=== PATIENT | male | born 1955 | race Caucasian/White ===

== ENCOUNTER 2020-09-15 08:41 | Outpatient (CLI) | payer OTHER, SELFPAY ==
--- NOTE | 2020-09-15 08:49 | XR_ITS ---
WS: [id number] XR shoulder RT min 2V* [id number] REASON FOR EXAM: R SHOULDER PAIN FINDINGS: The joint spaces of the acromioclavicular joint is intact. There is marginal osteophyte formation. There is mild narrowing of the glenohumeral joint. There is some sclerosis and cystic change in the rotator cuff tendon insertion site on humerus. No other significant focal bony abnormality. No soft tissue abnormality. XR/XR shoulder RT min 2V* [id number] IMPRESSION: Degenerative changes in the acromioclavicular and glenohumeral joint. Findings in the humeral head indicative of rotator cuff tendinopathy.
== END 2020-09-15 08:42 | disposition home or self-care (01) ==
LOC: RAD 08:45
PROVIDERS: Visit Provider Nurse Practitioner Family
DX: M25.511 Pain in right shoulder (principal)
CPT/HCPCS: 73030

== ENCOUNTER 2020-10-24 10:18 | Emergency (ER) | payer OTHER, SELFPAY ==
[2020-10-24 10:32] VITALS: BP 154/93; PULSE 93; RESP 16; TEMP 36.7; O2SAT 95; BMI 47.1
--- NOTE | 2020-10-24 10:55 | XR_ITS ---
WS: [id number] Exam: XR hip LT 2-3V wo/w pel* [id number] Date/Time of Exam: 10/24/2020 11:25 AM Reason For Exam: fall pain A total hip prosthesis is in place. No sign of fracture or loosening. Normal soft tissues. XR/XR hip LT 2-3V wo/w pel* [id number] IMPRESSION: 1. Intact total hip replacement. No complications noted.
--- NOTE | 2020-10-24 10:55 | XR_ITS ---
WS: [id number] Exam: XR lumbar spine 2-3V* [id number] Date/Time of Exam: 10/24/2020 11:25 AM Reason For Exam: fall pain No acute fracture or dislocation. Spondylosis noted with prominent anterior bridging osteophytes at s everal levels. The posterior elements are intact. Facet DJD at L4-5 and L5-S1. SI joint DJD. XR/XR lumbar spine 2-3V* [id number] IMPRESSION: 1. No fracture or malalignment. 2. Degenerative changes.
--- NOTE | 2020-10-24 10:59 | W.ED.EXTPRO ---
HPI - Extremity Problem General: Chief complaint: Extremity Injury, Lower Stated complaint: FALL-BACK PAIN Time Seen by Provider: 10/24/20 10:37 History of Present Illness: HPI Narrative: 65-year-old male who presents to the emergency room with complaint of a fall approximately 1 week ago. He fell landed on his left hip he has been to see the chiropractor twice and had some adjustments to his hip and back. He complains of pain radiating out of the lumbar spine area left of center down into the SI joint and around to the hip it does not extend into the leg he has been ambulating on it since the fall. He has a history of a previous left hip arthroplasty. Onset (ago): week(s) Pain Consistency: constant Location: other (Left lower back radiating into the buttock and lateral hip) Radiation: distal Relieving factors: nothing Exacerbating factors: weight bearing, walking, exertion and palpation Associated symptoms: Reports arthralgias; Deny chest pain, fever(s) or rash Review of Systems Const: Denies: fever(s), chills, body aches, change in appetite, fatigue or malaise ENMT: Denies: throat pain, ear or mastoid pain, nasal discharge or nasal congestion Card: Denies: chest pain, edema, dyspnea on exertion or orthopnea Resp: Denies: dyspnea, productive cough or non-productive cough GI: Denies: abdominal pain, nausea, vomiting, hematemesis, coffee ground emesis, diarrhea, constipation, bloating, hematochezia or melena : Denies: flank pain, dysuria, urinary frequency or urinary urgency Skin/Breast: Denies: rash or pruritus Physical Exam Const: COMMON NORMALS: no acute distress GENERAL APPEARANCE: cooperative and comfortable ORIENTATION/CONSCIOUSNESS: Yes awake, Yes oriented to person, Yes oriented to place and Yes oriented to time HENMT: COMMON NORMALS: normocephalic, atraumatic and hearing grossly normal bilaterally HEAD & SCALP: normocephalic and atraumatic Neck/C-Spine: COMMON NORMALS: no JVD Resp: COMMON NORMALS: normal respiratory effort, No retractions, No use of accessory muscles and clear to auscultation bilaterally AUSCULTATION: clear to auscultation bilaterally Cardio: COMMON NORMALS: no JVD, regular rate, regular rhythm and No murmurs present (Cardio) RATE: regular rate RHYTHM: regular rhythm GI: COMMON NORMALS: Soft to palpation and No hepatosplenomegaly present AUSCULTATION: Yes normoactive bowel sounds PALPATION: Yes Soft to palpation, No Tenderness to palpation present (GI), No Guarding due to palpation present (GI) and Yes No hepatosplenomegaly present Extremity: COMMON NORMALS: normal to inspection, capillary refill normal, no clubbing, cyanosis or edema, no calf tenderness and no pedal edema Neuro: SENSORIUM/ORIENTATION: Yes oriented to person, Yes oriented to place and Yes oriented to time Skin: COMMON NORMALS: no rashes or lesions noted GENERAL SKIN EXAM: no rashes or lesions noted Course Vital Signs: Vital signs: Vital Signs Temperature 98.0 F 10/24/20 10:32 Pulse Rate 83 10/24/20 12:53 Respiratory Rate 16 10/24/20 12:53 Blood Pressure 181/81 10/24/20 12:53 Pulse Oximetry 94 10/24/20 12:53 MDM - Extremity (Nontraumatic) MDM Narrative: Medical decision making narrative: Viewed findings of exam and imaging today. Will discharge the patient home have him follow-up with his primary care doctor pain medications given. Patient reassured that the films do not show any disruption of the prosthesis. He has significant arthritic changes in his lumbar spine but nothing acute. Follow-up with his primary care doctor if this persists he may need further advanced imaging Discharge Plan Discharge Patient Disposition: Home Clinical Impression: Back pain, Fall Condition: Stable Prescriptions: New hydrocodone-acetaminophen 5-325 mg tablet 1 tab PO Q6H PRN (Reason: pain) Qty: 25 RF: 0 tizanidine 2 mg capsule 2 mg PO Q6H PRN (Reason: muscle spasticity) Qty: 20 RF: 0 Discharge Orders: Discharge ED (Routine); Ordered 10/24/20 Ordered By: Fredrick Snow Discharge Diet: Usual diet Discharge Activity: Increase activity as tolerated Patient Instructions: Opioid Safety Activity Restrictions/Additional Instructions: Follow-up with your primary care provider if not improving Coding Level of Care Code ED Mender Hand for Yasmeen Castillo
[2020-10-24 12:53] VITALS: BP 181/81; PULSE 83; RESP 16; O2SAT 94
== END 2020-10-24 12:53 | disposition home or self-care (01) ==
PROVIDERS: Emergency Provider Family Medicine
DX: M54.9 Dorsalgia, unspecified (principal)
CPT/HCPCS: 72100; 73502; 96372; 99283; J2930

== ENCOUNTER 2021-09-03 15:16 | Outpatient (CLI) | payer OTHER, SELFPAY ==
[2021-09-03 15:37] LABS: Basophils # 0.1 10^3/uL (0.0-0.1); Basophils % 0.7 %; Eosinophils # 0.4 10^3/uL (0.0-0.8); Eosinophils % 2.8 %; Hematocrit 43.9 % (42.0-52.0); Hemoglobin 13.5 g/dL (11.7-16.6); Lymphocytes # 2.7 10^3/uL (0.8-4.8); Lymphocytes % 18.3 %; Mean Corpuscular HGB Conc 30.8 g/dL (30.0-36.0); Mean Corpuscular Hemoglobin 28.5 pg (28.0-34.0); Mean Corpuscular Volume 92.6 fl (80-94); Mean Platelet Volume 9.8 fL (7.4-10.4); Monocytes # 0.8 10^3/uL (0.2-0.9); Monocytes % 5.5 %; Neutrophils # 10.42 10^3/uL (1.8-7.7); Neutrophils % 70.4 %; Nucleated Red Blood Cells % 0 %; Platelet Count 377 10^3/cmm (130-400); Red Blood Count 4.74 10^6/uL (4.1-5.3); Red Cell Distribution Width 14.7 % (12.1-15.1); White Blood Count 14.8 10^3/uL (4.0-10.0)
== END 2021-09-03 15:17 | disposition home or self-care (01) ==
PROVIDERS: Visit Provider Orthopaedic Surgery
DX: Z79.01 Long term (current) use of anticoagulants (principal)
CPT/HCPCS: 85025

== ENCOUNTER 2022-04-09 14:47 | Outpatient (CLI) | payer OTHER, SELFPAY | END 2022-04-09 14:48 | disposition home or self-care (01) | LOC: LAB 14:50 | PROVIDERS: Visit Provider Urology | DX: R79.89 Other specified abnormal findings of blood chemistry (principal) | CPT/HCPCS: 36415; 81003 ==

== ENCOUNTER 2022-11-12 08:12 | Outpatient (CLI) | payer MEDICARE, SELFPAY ==
--- NOTE | 2022-11-12 08:31 | US_ITS ---
WS: [id number] RIGHT UPPER QUADRANT ULTRASOUND HISTORY: RUQ ABDOMINAL PAIN COMPARISON: 09/01/2014 Liver: 20.8 cm in length. Enlarged very heterogeneous dense liver. The entire liver cannot be evaluat ed due to the attenuation. No mass or bile duct dilatation evident. Portal Vein: Normal hepatopetal flow with monophasic waveform. Gallbladder: Status post cholecystectomy. CBD: 0.7 cm Pancreas: Obscured by bowel gas. Right kidney: 12.4 cm in length. Normal size and echogenicity. No hydronephrosis or mass. Aorta and IVC: Limited. No ascites. US/US abdomen limited [id number] IMPRESSION: 1. Quality of this examination is compromised by body habitus. 2. Marked hepatomegaly with hepatic steatosis. The entire liver cannot be well evaluated due to the attenuation. 3. Prior cholecystectomy. 4. Limited visualization of pancreas and aorta.
== END 2022-11-12 08:13 | disposition home or self-care (01) ==
PROVIDERS: PCP Nurse Practitioner Family; Visit Provider Nurse Practitioner Family
DX: R10.11 Right upper quadrant pain (principal)
CPT/HCPCS: 76705

== ENCOUNTER → 2022-11-15 08:14 | Outpatient (BNVA) | payer MEDICARE, SELFPAY | PROVIDERS: PCP Nurse Practitioner Family; Visit Provider Otolaryngology | DX: H91.92 Unspecified hearing loss, left ear (principal); H93.12 Tinnitus, left ear | CPT/HCPCS: 99203 ==

== ENCOUNTER 2022-12-08 16:03 | Emergency (ER) | payer MEDICARE, SELFPAY ==
[2022-12-08] VITALS (14 sets, daily range): BP systolic 120–162; BP diastolic 74–88; PULSE 68–83; RESP 18–22; TEMP 36.6; O2SAT 92–98; BMI 44.7
--- NOTE | 2022-12-08 16:08 | ECG_ITS ---
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 Measurements Intervals Severance Rate: 74 P: 62 NM: 138 QRS: -30 QRSD: 160 T: 21 QT: 378 QTc: 421 Interpretive Statements SINUS RHYTHM BORDERLINE LEFT AXIS DEVIATION [QRS AXIS < -20] RIGHT BUNDLE BRANCH BLOCK [120+ ms QRS DURATION, UPRIGHT V1, 40+ ms S IN I/aVL/V4/V5/V6] No previous ECG available for comparison Electronically Signed On 12-09-2022 11:08:41 CDT by Soila Oliver M.D. [id number]
--- NOTE | 2022-12-08 16:24 | XRR_ITS ---
PROCEDURE INFORMATION: Exam: XR Chest Exam date and time: 12/08/2022 4:39 PM Age: 67 years old Clinical indication: Pain; Chest pressure; Additional info: Cp TECHNIQUE: Imaging protocol: Radiologic exam of the chest. Views: 1 view. COMPARISON: CR XR shoulder RT min 2V* [id number] 09/15/2020 8:58 AM FINDINGS: Lungs: Visualized portions of the lungs are clear. There is no pulmonary venous congestion. Pleural spaces: Unremarkable. No pleural effusion. No pneumothorax. Heart/Mediastinum: Heart is upper limits of normal in size. Bones/joints: There are degenerative changes in the thoracic spine. There is some intercostal calcification in the lateral 9th interspace which could be due to prior remote injury. XR/XR chest 1V portable [id number] IMPRESSION: No acute infiltrate.
--- NOTE | 2022-12-08 16:26 | W.ED.CHESTPA ---
Documented by User: Paul Hernandez DO 12/08/22 17:58 HPI - Chest Pain General: Chief Complaint: Chest Pain Stated Complaint: chest tight, chest pains Time Seen by Provider: 12/08/22 16:10 Source: patient Mode of arrival: ambulatory Limitations: no limitations History of Present Illness: This gentleman made his way to the emergency department today because he became concerned about symptoms he has been having off and on for several weeks perhaps as long as a month. He does relate that they seem to be worsening over the past couple of weeks. They are rather vague and there characterization and that they predominantly are in the right flank area right chest area into the right upper abdomen. They do not have a particular pattern. He states that they are achy or grabbing at times sometimes they are positional but he cannot bring them on in a predictable fashion with activity. He denies that they are ripping or tearing he has not had any recent cough or illness. He states a couple months ago he was working on an engine on one of his cars and he developed some symptoms at that time and thought it was because of the position and possibly bending over working on the engine. He has had some nausea with the symptoms he thinks they are associated with the symptoms he does have a history of gastroesophageal reflux. Denies any change in his stooling urination etc. He states they are not brought on by eating. He has had a prior cholecystectomy and had a recent right upper quadrant ultrasound which showed fatty liver only. He has no history of kidney stones not noted any blood in his urine. He is a nontobacco user nonalcohol user. No history of reactive airway disease or asthma or recent illness. Does have a left hip arthroplasty which causes him discomfort when he tries to ambulate any persistent or long distances so he cannot tell me if he is short of breath with any greater than normal activity. Associated symptoms: Reports nausea; Deny abdominal pain, dyspnea, fever(s), palpitations or syncope Review of Systems Const: Denies: fever(s) or chills Eyes: Denies: change in vision ENMT: Denies: throat pain, odynophagia, nasal discharge or nasal congestion Card: Denies: chest pain, palpitations, irregular heart rhythm, edema, syncope or pre-syncope Resp: Denies: dyspnea, productive cough, non-productive cough, wheezing or stridor GI: Reports: nausea; Denies: abdominal pain, hematemesis, diarrhea or melena : Reports: flank pain; Denies: difficulty urinating, dysuria, urinary frequency or hematuria Musc: Reports: back pain; Denies: neck pain, extremity pain or extremity swelling Skin/Breast: Denies: rash Neuro: Denies: headache(s), numbness in extremities or weakness in extremities PFSH ED PFSH: Medical History Gout Hypertension Surgical History History of cholecystectomy History of left hip replacement History of shoulder surgery Social History Smoking and tobacco status: never smoked Physical Exam Const: COMMON NORMALS: patient oriented x3 GENERAL APPEARANCE: cooperative, comfortable and anxious NUTRITIONAL APPEARANCE: obese ORIENTATION/CONSCIOUSNESS: Yes awake HENMT: COMMON NORMALS: normocephalic, Normal nasal mucous membranes and turbinates present, moist oral mucous membranes and oropharynx normal HEAD & SCALP: normocephalic FACE & SINUS: normal facial exam NOSE: Normal nasal mucous membranes and turbinates present Eye: COMMON NORMALS: Equal, round and reactive pupils present, EOMs intact bilaterally and conjunctivae normal CONJUNCTIVA: Yes conjunctivae normal PUPIL: Yes Equal, round and reactive pupils present Neck/C-Spine: COMMON NORMALS: full ROM, no lymphadenopathy, supple and no JVD Chest: COMMONS NORMALS: normal inspection of the chest and normal palpation of entire chest wall Resp: COMMON NORMALS: normal respiratory effort, No retractions, No use of accessory muscles and clear to auscultation bilaterally AUSCULTATION: clear to auscultation bilaterally Cardio: COMMON NORMALS: no JVD, regular rate, regular rhythm, No murmurs present (Cardio) and Peripheral pulses 2+ throughout RATE: regular rate RHYTHM: regular rhythm PERIPHERAL PULSES: Peripheral pulses 2+ throughout GI: COMMON NORMALS: Soft to palpation, No hepatosplenomegaly present and no masses INSPECTION: Yes central obesity PALPATION: Yes Soft to palpation and Yes No hepatosplenomegaly present GI image (male): 1. Area of tenderness without guarding or rebound skin rashes etc. : COMMON NORMALS: Yes no CVA tenderness BLADDER/KIDNEY EXAM: Yes no CVA tenderness Back/Pelvis: COMMON NORMALS: no CVA tenderness, thoracic and lumbar spine normal to inspection, no thoracic nor lumbar tenderness, thoraco-lumbar ROM normal and straight leg raise negative bilaterally Extremity: COMMON NORMALS: normal to inspection, full ROM, capillary refill normal, no calf tenderness and no pedal edema Neuro: COMMON NORMALS: patient oriented x3, moves all extremities and no sensory deficits noted CRANIAL NERVES: Yes CN normal except as noted Psych: COMMON NORMALS: mental status grossly normal Skin: COMMON NORMALS: no rashes or lesions noted, no wounds and turgor normal GENERAL SKIN EXAM: no rashes or lesions noted and turgor normal Course Reevaluation(s): Reevaluation #1: Case was discussed with overnight ED physician Dr. Sandra Time: 17:55 Vital Signs: Vital signs: Vital Signs Temperature 97.9 F 12/08/22 16:16 Pulse Rate 78 12/08/22 17:15 Respiratory Rate 18 12/08/22 16:30 Blood Pressure 161/83 12/08/22 17:15 Pulse Oximetry 94 12/08/22 17:15 Oxygen Delivery Me thod Room Air 12/08/22 16:16 MDM - Chest Pain Medical Decision Making Patient with right flank pain presented to the emergency department with several weeks of similar symptoms. Work-up ensued to ensure no evidence of pyelonephritis, renal stone, occult ACS etc. Lab Data 12/08/22 16:18 12/08/22 16:18 Radiology Impressions Chest X-Ray 12/08/22 16:24 IMPRESSION: No acute infiltrate. Abdomen/Pelvis CT 12/08/22 17:16 IMPRESSION: 1. Fatty liver 2. No urinary tract calculi are identified. Laboratory Results WBC 13.3 10^3/uL (4.0-10.0) H 12/08/22 16:18 RBC 4.76 10^6/uL (4.1-5.3) 12/08/22 16:18 Hgb 13.9 g/dL (11.7-16.6) 12/08/22 16:18 Hct 43.2 % (42.0-52.0) 12/08/22 16:18 MCV 90.8 fl (80-94) 12/08/22 16:18 MCH 29.2 pg (28.0-34.0) 12/08/22 16:18 MCHC 32.2 g/dL (30.0-36.0) 12/08/22 16:18 RDW 15.0 % (12.1-15.1) 12/08/22 16:18 Plt Count 222 10^3/cmm (130-400) 12/08/22 16:18 MPV 10.0 fL (7.4-10.4) 12/08/22 16:18 Neut % (Auto) 67.4 % 12/08/22 16:18 Lymph % (Auto) 21.9 % 12/08/22 16:18 [place] % (Auto) 7.3 % 12/08/22 16:18 Eos % (Auto) 1.7 % 12/08/22 16:18 Baso % (Auto) 0.5 % 12/08/22 16:18 Neut # (Auto) 8.96 10^3/uL (1.8-7.7) H 12/08/22 16:18 Lymph # (Auto) 2.9 10^3/uL (0.8-4.8) 12/08/22 16:18 [place] # (Auto) 1.0 10^3/uL (0.2-0.9) H 12/08/22 16:18 Eos # (Auto) 0.2 10^3/uL (0.0-0.8) 12/08/22 16:18 Baso # (Auto) 0.1 10^3/uL (0.0-0.1) 12/08/22 16:18 Nucleated RBC % (auto) 0 % 12/08/22 16:18 Nucleated RBCs # 0.0 /100WBC 12/08/22 16:18 Sodium 137 mmol/L (136-145) 12/08/22 16:18 Potassium 3.4 mmol/L (3.5-5.1) L 12/08/22 16:18 Chloride 102 mmol/L (98-107) 12/08/22 16:18 Carbon Dioxide 25 mmol/L (22-29) 12/08/22 16:18 Anion Gap 13.4 (5-19) 12/08/22 16:18 BUN 20 mg/dL (8-23) 12/08/22 16:18 Creatinine 0.8 mg/dL (0.7-1.2) 12/08/22 16:18 GFR Calculation 96.7 mL/min (90-130) 12/08/22 16:18 Glucose 98 mg/dL (65-115) 12/08/22 16:18 Calculated Osmolality 287 mOsm/kg (285-295) 12/08/22 16:18 Calcium 8.7 mg/dL (8.5-10.5) 12/08/22 16:18 Total Bilirubin 0.4 mg/dL (0.15-1.2) 12/08/22 16:18 AST 18 U/L (0-40) 12/08/22 16:18 ALT 23 U/L (0-41) 12/08/22 16:18 Alkaline Phosphatase 85 U/L (40-130) 12/08/22 16:18 Troponin T Baseline 9 ng/L (0-15) 12/08/22 16:18 Troponin T 120 Minute 8.77 ng/L (0-15) 12/08/22 18:23 Total Protein 6.3 g/dL (6.6-8.7) L 12/08/22 16:18 Albumin 4.0 g/dL (3.5-5.2) 12/08/22 16:18 Globulin 2.3 g/dL (1.3-4.6) 12/08/22 16:18 Lipase 16 U/L (13-60) 12/08/22 16:18 EKG Data EKG 1: I personally reviewed and interpreted this EKG as follows: Interpretation: Resting EKG reveals a ventricular rate of 74 bpm. Normal CO interval and normal QRS duration normal Q TC. Has a right bundle branch block pattern but no acute ST-T wave changes.We have no prior tracings available in this system for comparison Discharge Plan Discharge Patient Disposition: Home Clinical Impression: Chest pain Condition: Stable Prescriptions: No Action fluticasone propionate [Flonase Allergy Relief] 50 mcg/actuation spray,suspension 2 spray intranasal DAILY Rx Instructions: administer into each nostril triamterene-hydrochlorothiazid 37.5-25 mg capsule 1 cap PO DAILY pantoprazole 40 mg tablet,delayed release (DR/EC) 40 mg PO BID celecoxib [Celebrex] 200 mg capsule 200 mg PO DAILY meclizine 25 mg tablet 25 mg PO DAILY PRN allopurinol 300 mg tablet 300 mg PO DAILY losartan 50 mg tablet 50 mg PO DAILY tramadol 50 mg tablet 50 mg PO DAILY acetaminophen [Tylenol Arthritis Pain] 650 mg tablet extended release 650 mg PO Q12H tizanidine 2 mg capsule 2 mg PO Q6H PRN (Reason: muscle spasticity) Qty: 20 0RF Rx Instructions: do not exceed 3 doses per 24 hrs Discharge Orders: Discharge ED (Routine); Ordered 12/08/22 Ordered By: Jing Sandra Referrals: Soila Oliver MD [Physician] - 1-3 days Winters,DODIE Morrissey [Primary Care Provider] - Discharge Diet: Advance as tolerated Discharge Activity: Resume usual activity Patient Instructions: Chest Pain (ED) Coding Level of Care Code ED Welding Rod Coater for Chg Fwd Documented by User: Jing Sandra MD 12/08/22 19:12 HPI - Chest Pain General: Chief Complaint: Chest Pain Stated Complaint: chest tight, chest pains Time Seen by Provider: 12/08/22 16:10 [facility] ED PFSH: Medical History Gout Hypertension Surgical History History of cholecystectomy History of left hip replacement History of shoulder surgery Social History Smoking and tobacco status: never smoked Physical Exam GI: GI image (male): 1. Area of tenderness without guarding or rebound skin rashes etc. Course Vital Signs: Vital signs: Vital Signs Temperature 97.9 F 12/08/22 16:16 Pulse Rate 78 12/08/22 17:15 Respiratory Rate 18 12/08/22 16:30 Blood Pressure 161/83 12/08/22 17:15 Pulse Oximetry 94 12/08/22 17:15 Oxygen Delivery Me thod Room Air 12/08/22 16:16 MDM - Chest Pain Medical Decision Making Patient with right flank pain presented to the emergency department with several weeks of similar symptoms. Work-up ensued to ensure no evidence of pyelonephritis, renal stone, occult ACS etc. Patient's troponins here are normal no signs of acute coronary syndrome. Patient is stable for discharge at this time we will get him cardiology follow-up he is return if worsening. Lab Data 12/08/22 16:18 12/08/22 16:18 Radiology Impressions Chest X-Ray 12/08/22 16:24 IMPRESSION: No acute infiltrate. Abdomen/Pelvis CT 12/08/22 17:16 IMPRESSION: 1. Fatty liver 2. No urinary tract calculi are identified. Laboratory Results WBC 13.3 10^3/uL (4.0-10.0) H 12/08/22 16:18 RBC 4.76 10^6/uL (4.1-5.3) 12/08/22 16:18 Hgb 13.9 g/dL (11.7-16.6) 12/08/22 16:18 Hct 43.2 % (42.0-52.0) 12/08/22 16:18 MCV 90.8 fl (80-94) 12/08/22 16:18 MCH 29.2 pg (28.0-34.0) 12/08/22 16:18 MCHC 32.2 g/dL (30.0-36.0) 12/08/22 16:18 RDW 15.0 % (12.1-15.1) 12/08/22 16:18 Plt Count 222 10^3/cmm (130-400) 12/08/22 16:18 MPV 10.0 fL (7.4-10.4) 12/08/22 16:18 Neut % (Auto) 67.4 % 12/08/22 16:18 Lymph % (Auto) 21.9 % 12/08/22 16:18 [place] % (Auto) 7.3 % 12/08/22 16:18 Eos % (Auto) 1.7 % 12/08/22 16:18 Baso % (Auto) 0.5 % 12/08/22 16:18 Neut # (Auto) 8.96 10^3/uL (1.8-7.7) H 12/08/22 16:18 Lymph # (Auto) 2.9 10^3/uL (0.8-4.8) 12/08/22 16:18 [place] # (Auto) 1.0 10^3/uL (0.2-0.9) H 12/08/22 16:18 Eos # (Auto) 0.2 10^3/uL (0.0-0.8) 12/08/22 16:18 Baso # (Auto) 0.1 10^3/uL (0.0-0.1) 12/08/22 16:18 Nucleated RBC % (auto) 0 % 12/08/22 16:18 Nucleated RBCs # 0.0 /100WBC 12/08/22 16:18 Sodium 137 mmol/L (136-145) 12/08/22 16:18 Potassium 3.4 mmol/L (3.5-5.1) L 12/08/22 16:18 Chloride 102 mmol/L (98-107) 12/08/22 16:18 Carbon Dioxide 25 mmol/L (22-29) 12/08/22 16:18 Anion Gap 13.4 (5-19) 12/08/22 16:18 BUN 20 mg/dL (8-23) 12/08/22 16:18 Creatinine 0.8 mg/dL (0.7-1.2) 12/08/22 16:18 GFR Calculation 96.7 mL/min (90-130) 12/08/22 16:18 Glucose 98 mg/dL (65-115) 12/08/22 16:18 Calculated Osmolality 287 mOsm/kg (285-295) 12/08/22 16:18 Calcium 8.7 mg/dL (8.5-10.5) 12/08/22 16:18 Total Bilirubin 0.4 mg/dL (0.15-1.2) 12/08/22 16:18 AST 18 U/L (0-40) 12/08/22 16:18 ALT 23 U/L (0-41) 12/08/22 16:18 Alkaline Phosphatase 85 U/L (40-130) 12/08/22 16:18 Troponin T Baseline 9 ng/L (0-15) 12/08/22 16:18 Troponin T 120 Minute 8.77 ng/L (0-15) 12/08/22 18:23 Total Protein 6.3 g/dL (6.6-8.7) L 12/08/22 16:18 Albumin 4.0 g/dL (3.5-5.2) 12/08/22 16:18 Globulin 2.3 g/dL (1.3-4.6) 12/08/22 16:18 Lipase 16 U/L (13-60) 12/08/22 16:18 Discharge Plan Discharge Patient Disposition: Home Clinical Impression: Chest pain Condition: Stable Prescriptions: No Action fluticasone propionate [Flonase Allergy Relief] 50 mcg/actuation spray,suspension 2 spray intranasal DAILY Rx Instructions: administer into each nostril triamterene-hydrochlorothiazid 37.5-25 mg capsule 1 cap PO DAILY pantoprazole 40 mg tablet,delayed release (DR/EC) 40 mg PO BID celecoxib [Celebrex] 200 mg capsule 200 mg PO DAILY meclizine 25 mg tablet 25 mg PO DAILY PRN allopurinol 300 mg tablet 300 mg PO DAILY losartan 50 mg tablet 50 mg PO DAILY tramadol 50 mg tablet 50 mg PO DAILY acetaminophen [Tylenol Arthritis Pain] 650 mg tablet extended release 650 mg PO Q12H tizanidine 2 mg capsule 2 mg PO Q6H PRN (Reason: muscle spasticity) Qty: 20 0RF Rx Instructions: do not exceed 3 doses per 24 hrs Discharge Orders: Discharge ED (Routine); Ordered 12/08/22 Ordered By: Jing Sandra Referrals: Soila Oliver MD [Physician] - 1-3 days Winters,DODIE Morrissey [Primary Care Provider] - Discharge Diet: Advance as tolerated Discharge Activity: Resume usual activity Patient Instructions: Chest Pain (ED) Coding Level of Care Code ED Welding Rod Coater for Yasmeen Castillo
--- NOTE | 2022-12-08 16:27 | PC.NURSE ---
PT PLACED ON CONTINUOUS SPO2, NIBP, AND CM.
[2022-12-08 16:39] LABS: Basophils # 0.1 10^3/uL (0.0-0.1); Basophils % 0.5 %; Eosinophils # 0.2 10^3/uL (0.0-0.8); Eosinophils % 1.7 %; Hematocrit 43.2 % (42.0-52.0); Hemoglobin 13.9 g/dL (11.7-16.6); Lymphocytes # 2.9 10^3/uL (0.8-4.8); Lymphocytes % 21.9 %; Mean Corpuscular HGB Conc 32.2 g/dL (30.0-36.0); Mean Corpuscular Hemoglobin 29.2 pg (28.0-34.0); Mean Corpuscular Volume 90.8 fl (80-94); Monocytes % 7.3 %; Neutrophils # 8.96 10^3/uL (1.8-7.7); Neutrophils % 67.4 %; Nucleated Red Blood Cells % 0 %; Platelet Count 222 10^3/cmm (130-400); Red Blood Count 4.76 10^6/uL (4.1-5.3); White Blood Count 13.3 10^3/uL (4.0-10.0)
[2022-12-08 16:56] LABS: Alanine Aminotransferase 23 U/L (0-41); Alkaline Phosphatase 85 U/L (40-130); Anion Gap 13.4 (5-19); Aspartate Amino Transferase 18 U/L (0-40); Blood Urea Nitrogen 20 mg/dL (8-23); Calcium 8.7 mg/dL (8.5-10.5); Carbon Dioxide 25 mmol/L (22-29); Chloride 102 mmol/L (98-107); Globulin 2.3 g/dL (1.3-4.6); Glomerular Filtration Rate 96.7 mL/min (90-130); Glucose 98 mg/dL (65-115); Lipase 16 U/L (13-60); Osmolality Calculated 287 mOsm/kg (285-295); Potassium 3.4 mmol/L (3.5-5.1); Sodium 137 mmol/L (136-145); Total Bilirubin 0.4 mg/dL (0.15-1.2); Total Protein 6.3 g/dL (6.6-8.7)
[2022-12-08 16:58] LABS: Troponin(5th) Baseline 9 ng/L (0-15)
--- NOTE | 2022-12-08 17:16 | CTR_ITS ---
PROCEDURE INFORMATION: Exam: CT Abdomen And Pelvis Without Contrast Exam date and time: 12/08/2022 5:59 PM Age: 67 years old Clinical indication: Abdominal pain; Flank; Right; Prior surgery; Surgery date: 6+ months; Surgery type: Gb; Additional info: Right flank pain TECHNIQUE: Imaging protocol: Computed tomography of the abdomen and pelvis without contrast. Radiation optimization: All CT scans at this facility use at least one of these dose optimization techniques: automated exposure control; mA and/or kV adjustment per patient size (includes targeted exams where dose is matched to clinical indication); or iterative reconstruction. REPORTING DATA: Count of CT and Cardiac NM exams in prior 12 months: This patient has received 0 known CTs and 0 known cardiac nuclear medicine studies in the 12 months prior to the current study. COMPARISON: CR XR hip LT 2-3V wo/w pel* [id number] 10/24/2020 11:30 AM RADIATION DOSE METRICS: Total DLP (mGy-cm): 1262.83 FINDINGS: Limitations: The absence of intravenous contrast lessens the sensitivity of this study for solid organ abnormalities. Tubes, catheters and devices: There is left hip replacement with prosthetic components in anatomic alignment. Liver: There is a diffuse decrease in hepatic parenchymal density, consistent with mild fatty infiltration. There is no focal abnormality within the liver. Gallbladder and bile ducts: There has been a cholecystectomy. Pancreas: The pancreas is normal. Spleen: The spleen is normal. Adrenal glands: The adrenal glands are normal. Kidneys and ureters: The kidneys are normal. There is no evidence of hydronephrosis. There is no evidence of renal or ureteral calcifications. Stomach and bowel: There is no evidence of colitis/diverticulitis. There is no evidence of intestinal obstruction. Appendix: A normal appendix is identified. Intraperitoneal space: There is no evidence of free intraperitoneal fluid. Vasculature: Unremarkable. No abdominal aortic aneurysm. Lymph nodes: Unremarkable. No enlarged lymph nodes. Urinary bladder: Unremarkable as visualized. Reproductive: The prostate demonstrates mild nonspecific enlargement. The seminal vesicles are normal. Bones/joints: The lumbar spine demonstrates moderate degenerative changes at multiple levels. There is multilevel lumbar stenosis. Soft tissues: Unremarkable. CT/CT abdomen pelvis wo con [id number] IMPRESSION: 1. Fatty liver 2. No urinary tract calculi are identified.
--- NOTE | 2022-12-08 18:24 | ECG_ITS ---
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 Measurements Intervals Apex Rate: 73 P: 68 MT: 147 QRS: -25 QRSD: 165 T: 33 QT: 416 QTc: 459 Interpretive Statements SINUS RHYTHM BORDERLINE LEFT AXIS DEVIATION [QRS AXIS < -20] RIGHT BUNDLE BRANCH BLOCK [120+ ms QRS DURATION, UPRIGHT V1, 40+ ms S IN I/aVL/V4/V5/V6] Compared to ECG 12/08/2022 16:08:17 No significant changes Electronically Signed On 12-09-2022 11:10:46 CDT by Soila Oliver M.D. [id number]
[2022-12-08 19:01] LABS: Troponin 5 2HR 8.77 ng/L (0-15)
[2022-12-08 19:52] LABS: Troponin 5 2HR Delta -0.23 ABS# (0-10)
--- NOTE | 2022-12-09 10:19 | DCPLANNER ---
Addendum entered by Michelle Coley 01/23/23 07:18: Patient had a follow up appointment scheduled with heart care - patient did attend appointment Addendum entered by Michelle Coley 12/10/22 09:37: Patient has a follow up appointment scheduled for Saturday, January 14, 2023 at 9:[address] Oliver at [facility]. Original Note: it service manager had message to schedule a follow up appointment for patient with cardiology. it service manager sent patients to the front office staff at [facility]. Patients information will be printed and reviewed. Clinic will call patient with appointment information.
== END 2022-12-08 19:33 | disposition home or self-care (01) ==
PROVIDERS: Emergency Medicine; Emergency Provider Emergency Medicine; PCP Nurse Practitioner Family
DX: R07.89 Other chest pain (principal); R10.11 Right upper quadrant pain; I45.10 Unspecified right bundle-branch block
CPT/HCPCS: 36415; 71045; 74176; 80053; 83690; 84484; 85025; 93005; 99285

== ENCOUNTER → 2023-01-01 13:02 | Outpatient (BNVA) | payer MEDICARE, SELFPAY | PROVIDERS: PCP Nurse Practitioner Family; Visit Provider Internal Medicine | DX: R07.89 Other chest pain (principal); I10 Essential (primary) hypertension | CPT/HCPCS: 99204 ==

== ENCOUNTER 2023-01-15 08:21 | Outpatient (CLI) | payer MEDICARE, SELFPAY ==
--- NOTE | 2023-01-15 08:45 | USCV_ITS ---
Abhishek Bunch Age: 67 Gender: M : 1955 Exam Date: 01/15/2023 08:59 Ordering Phys: Hung Washington M.D ([email or web address]) Technologist: Exam Location: [facility] [place] Indication: chest pain BP: 135 / 80 HR: 82 Rhythm: Sinus Technical Quality: Adequate MEASUREMENTS (Male / Female) Normal Values 2D ECHO LV Diastolic Diameter PLAX 5.2 cm 4.2 - 5.9 / 3.9 - 5.3 cm LV Systolic Diameter PLAX 3.0 cm IVS Diastolic Thickness 1.7 cm 0.6 - 1.0 / 0.6 - 0.9 cm IVS Systolic Thickness 2.1 cm LVPW Diastolic Thickness 1.7 cm 0.6 - 1.0 / 0.6 - 0.9 cm LVPW Systolic Thickness 1.6 cm LVOT Diameter 2.0 cm LV Ejection Fraction 2D Teich 73.6 % LV Ejection Fraction MOD 2C 61.3 % LV Ejection Fraction 2C AL 62.5 % LA Diameter 3.9 cm Aorta at Sinotubular Diameter 3.3 cm IVC Diameter 1.9 cm M-MODE Aortic Annulus Diameter 3.1 cm LA Ao Ratio MM 1.4 MV E Point Septal Separation 1.1 cm DOPPLER AV Peak Velocity 151.0 cm/s LVOT Peak Velocity 110.0 cm/s AV Area Cont Eq vti 2.9 cm squared AV Area Cont Eq pk 2.4 cm squared MV Area PHT 5.0 cm squared Mitral E to A Ratio 0.8 MV E' Velocity 50.0 cm/s Mitral E to MV E' Ratio 11.7 Mitral E to LV E' Lateral Ratio 11.8 Mitral E to LV E' Septal Ratio 11.7 TR Peak Velocity 147.3 cm/s TR Peak Gradient 8.7 mmHg RV Acceleration Time 0.2 s FINDINGS Left Ventricle Left ventricle is normal size. LV systolic function is normal with EF of 55 to 60%. No regional wall motion abnormalities are seen. Grade 1 diastolic dysfunction Right Ventricle Normal in size and function Right Atrium Normal in size Left Atrium Normal in size Mitral Valve Structurally normal mitral valve. No significant regurgitation. Aortic Valve Structurally normal aortic valve. No significant stenosis or regurgitation. Tricuspid Valve Mild tricuspid regurgitation. Insufficient TR jet to calculate RVSP. Pulmonic Valve Not well-visualized Pericardium Normal Aorta Normal in size IVC Appears to be normal CONCLUSIONS LV systolic function is normal with EF of 55 to 60% Grade 1 diastolic dysfunction Mild tricuspid regurgitation Compared to prior echocardiogram from 2014, no significant changes are seen Hung Washington MD (Electronically Signed) Final Date: 01 February 2023 11:01 S
== END 2023-01-15 08:22 | disposition home or self-care (01) ==
PROVIDERS: PCP Nurse Practitioner Family; Visit Provider Internal Medicine
DX: R06.02 Shortness of breath (principal); R07.9 Chest pain, unspecified
CPT/HCPCS: 93306

== ENCOUNTER 2023-01-28 08:00 | Outpatient (CLI) | payer MEDICARE, SELFPAY ==
--- NOTE | 2023-01-28 | ECG_ITS ---
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 Interpretive Statements NAME OF STUDY: LEXISCAN SESTAMIBI STRESS TEST INDICATION: [Chest Pain; Shortness of Breath, ] Procedure: At the baseline, the blood pressure was 157/88 mmHg with a heart rate of 78 bpm. The electrocardiogram showed normal sinus rhythm, right bundle branch block with normal ST and T's. The Lexiscan was infused over a period of 20 seconds. A total of 0.4 mg of Lexiscan was infused. The stress phase was continued for a total of 5 minutes. Heart rate was at the end of stress phase was 92 bpm and a blood pressure of 155/85 mmHg. The EKG at the peak infusion revealed normal sinus rhythm with no significant ST-T wave changes. PVCs are seen. Sestamibi was injected 20 seconds after the Lexiscan infusion. Blood pressure at the end of recovery phase was 171/90 mmHg with a heart rate of 91 bpm. Conclusion: 1. Normal EKG response to Lexiscan infusion 2. No Lexiscan induced chest pain or cardiac arrhythmia. 3. Normal blood pressure and heart rate response. 4. Sestamibi/sestamibi perfusion scan pending; see separate report. Electronically Signed On 02-18-2023 11:02:25 CDT by Hung Washington M.D. [id number]
[2023-01-28 08:22] VITALS: BMI 45.0
--- NOTE | 2023-01-28 08:27 | NMCV_ITS ---
NM yvonne perf SPECT r/s* [id number] Abhishek Bunch Age: 67 Gender: M : 1955 Exam Date: 01/28/2023 09:13 Ordering Phys: Hung Washington M.D ([email or web address]) Technologist: THOMPSON Gomez Exam Location: [facility] Indications: CHEST PAIN, SHORTNESS OF BREATH STRESS TEST Please [facility] for [facility] findings IMAGE PROTOCOL Rest/Stress 1 Lexiscan Day Radiopharmaceutical Dose (mCi) Administration Site Administered by Rest: Tc-99m 10.6 IV THOM[place]ON [place] Sestamibi Stress:Tc-99m 33.0 IV THOM[place]ON [place] Sestamibi Rest: 28-Jan-2023 60 Discovery 630 Stress: 28-Jan-2023 30 Discovery 630 0.4mg Lexiscan. Images obtained in supine and prone position. SPECT RESULTS Technical Quality: Excellent Raw Data Analysis: Normal Image Corrections: No attenuation or motion correction applied Summed Stress Score: 4 Summed Rest Score: 1 Summed Difference Score: 3 PERFUSION FINDINGS There is a medium sized partially reversible perfusion defect noted in the lateral and inferolateral woodward. This is consistent with medium sized prior infarct with significant adeline-infarct ischemia in the left circumflex artery territory. Attenuation artifact can not be ruled out. FUNCTIONAL RESULTS (calculated via Gated SPECT) Stress Image LV EF (%): 57 Stress EDV (mL):131 TID: 1.1 Stress ESV (mL):56 FUNCTIONAL FINDINGS: There is normal left ventricular systolic function. IMPRESSIONS 1. Medium sized area of prior infarct with significant adeline-infarct ischemia seen in left circumflex artery territory. Attenuation artifact cannot be ruled out. Clinical correlation is required. 2. LV systolic function is normal. Hung Washington MD (Electronically Signed) Final Date: 02 February 2023 11:16 S
[2023-01-28] MEDS: regadenoson 0.4 Mg/5 ml Syringe IVP (10:30)
[2023-01-28 10:44] VITALS: BP 171/90; PULSE 95
== END 2023-01-28 08:01 | disposition home or self-care (01) ==
LOC: CDL 08:01
PROVIDERS: PCP Nurse Practitioner Family; Visit Provider Internal Medicine
DX: R07.9 Chest pain, unspecified (principal); R06.02 Shortness of breath
CPT/HCPCS: 36415; 78452; 93017; 96375; A9500; J2785

== ENCOUNTER 2023-02-10 08:18 | Outpatient (CLI) | payer MEDICARE, SELFPAY ==
--- NOTE | 2023-02-10 08:24 | XRR_ITS ---
PROCEDURE INFORMATION: Exam: XR Left Knee Exam date and time: 02/10/2023 8:31 AM Age: 67 years old Clinical indication: Swelling or effusion of joint; Patient HX: Dr. Valentino believe there to be an infection in the patient's left knee. The patient's left knee has been oozing for the past month; Additional info: Infection of knee TECHNIQUE: Imaging protocol: Radiologic exam of the left knee. Views: 3 views. COMPARISON: No relevant prior studies available. FINDINGS: Bones/joints: No fractures identified. [id number] superior and inferior patellar enthesophytosis. No significant knee joint effusion. Soft tissues: Mild soft tissue swelling about the anterior knee. XR/XR knee LT 3V* [id number] IMPRESSION: 1. Mild soft tissue swelling about the anterior knee. 2. No knee joint effusion to suggest septic joint.
== END 2023-02-10 08:19 | disposition home or self-care (01) ==
PROVIDERS: PCP Nurse Practitioner Family; Visit Provider Nurse Practitioner Family
DX: M00.9 Pyogenic arthritis, unspecified (principal); M79.89 Other specified soft tissue disorders
CPT/HCPCS: 73562

== ENCOUNTER 2023-02-27 07:33 | Outpatient (CLI) | payer MEDICARE, SELFPAY ==
[2023-02-27] VITALS (12 sets, daily range): BP systolic 138–173; BP diastolic 79–106; PULSE 68–96; RESP 16–21; TEMP 36.8; O2SAT 95–98; BMI 45.9
--- NOTE | 2023-02-27 07:30 | XACV_ITS ---
Exam Room: 2 Ht: 175 cm Wt: 141 kg BSA: 2.69 m2 Gender: Male : 1955 Any Known Allergies: No known allergies Exam Priority: Routine Procedure(s): Procedure Description: Diagnostic procedure Procedure Description: Left Heart Catheterization Procedure Description: Left ventriculography Procedure Description: Coronary Angiography Diagnostic Cath Status: Elective Diagnostic Findings * INDICATION: 67-year-old man with past medical history of hypertension has been referred for evaluation of chest discomfort. A stress test was performed which showed findings ischemia in the left circumflex artery territory. Given patient's ongoing symptoms, decision made to perform coronary angiogram with possible percutaneous coronary intervention. * No significant disease noted in the Left Main, Left Anterior Descending, Right, or Circumflex coronary arteries. Right PDA has mild disease. * Coronary angiography shows right dominance. Conclusions 1. No significant disease noted in the Left Main, Left Anterior Descending, Right, or Circumflex coronary arteries. Right PDA has mild disease. 2. Normal left ventricular systolic function. Ejection fraction of 55%. Recommendations * Aggressive risk factor modification. * Outpatient cardiology follow up in 4 weeks. Interventional RX Recommendation: medical therapy and/or counseling Diagnostic RX Recommendation: medical therapy and/or counseling Anticoagulation: Heparin Ventriculography Ejection Fraction: 55.0 % Pressures Phase:Rest AO : 143 / 78 ( 103 ) @ 10:28:00 AM 140 / 73 ( 99 ) @ 10:36:00 AM 141 / 74 ( 100 ) @ 10:36:00 AM LV : 145 / / 19 @ 10:35:00 AM 160 / -2 / 22 @ 10:36:00 AM 159 / -2 / 22 @ 10:36:00 AM Valves Phase:DefaultPhase AV : 18.0 @ 9:42:33 AM 18.0 @ 9:42:33 AM AV Mean Gradient: 27.0 @ 9:42:33 AM 27.0 @ 9:42:33 AM Clinical Evaluation EBL: 5mL-10mL Procedural Details Procedure Consent Obtained. Admit Source: Out Patient. Pre-Procedure Time Out. Identified patient by full name and date of as verbalized by the patient/guarantor. Does the consent match the physician's order: Yes. Accurate & Complete Informed Consent: Yes. Inpatient/Outpatient History & Physical on Chart: Yes. If H&P is completed, is and addenduem needed: Yes; If yes, is the addendum complete: No. Visualize and Verify Site with Patient/Guarantor: N/A. Relevant Radiology Images available: Yes. The risks, benefits, and alternatives of sedation and/or procedure were discussed by physician. The patient agrees to continue. Procedure started. [facility] Clinical Fraility Score: 4: Vulnerable. Testing Specialist Indications: Worsening Angina. Chest Pain Symptom Assessment: Atypical Angina. Correct patient, site and procedure confirmed by cath team. Current diagnosis: Chest Pain, Abnormal stress test. PERRLA. Strong, equal hand rec therapist bilaterally. Lungs clear x 5 lobes. IV Site on Arrival: 20 gauge in the right anticubital. IV Fluids: 0.9% NaCl at 75ml/hr. 0 mL infused prior to manufacturing lab technician. Pre Procedural Pulses: bilateral radial was 3+. Pre Procedural Pulses: bilateral dorsalis pedis was 3+. Pre Procedural Pulses: bilateral posterior tibial was 1+. Oxygen started at 2liters/min via nasal canula. right groin was prepped with chloroprep then draped in the usual sterile fashion. right radial was prepped with chloroprep then draped in the usual sterile fashion. Physician notified. Baseline sample Acquired. HR: 73 BPM. Physician arrived. Physician scrubbed in. Immediate Pre-Procedure Time Out. Correct Patient: Yes; Correct Procedure: Yes; Correct Site: Yes; Correct Patient Position: Yes; Correct Supplies: Yes; Dried Flammable Prep: Yes; Blood Products Available: No;. Lidocaine 1% infiltrated to the right radial. Arterial access obtained. A 5 kazakh TIG catheter in over wire. Multiple views taken of left coronary artery. Catheter redirected to the RCA. Multiple views taken of right coronary artery. Catheter removed over the exchange wire. A 5 kazakh Angled Pig catheter in over wire. EDP Sample taken: LV 145/1,19; HR: 79 BPM; SpO2: 97%. LV gram performed in BOO @ 10 mL/second for a total of 30 mL. EDP Sample taken: LV 160/-3,22; HR: 83 BPM; SpO2: 97%. Pullback taken: LV 159/-3,22; AO 140/73(99); Mean: 27mmHg, Peak to Peak: 18mmHg, SEP: 12sec/min; HR: 81 BPM; SpO2: 97%. Post-op diagnosis: Non-obstructive CAD. A TR Band was successful obtaining hemostatsis at the Right Radial artery insertion site. PERRLA. Strong, equal hand rec therapist bilaterally. No VTE prophylaxis required. Medication's Wasted: Nitro = 49.8 mg. Medication's Wasted: Heparin = 1000 unit. Medication's Wasted: Other = Versed 1 mg. Medication's Wasted: Other = Fentanyl 50mcg. Medication's Wasted: Lidocaine 1% = 2 mL. Total IV fluids: 28 mL. Complications: None. Estimated blood loss: 5mL-10mL. Responsiveness - Normal response to verbal stimuli; alert and oriented, PERRLA. Airway - Unaffected, no intervention required; spontaneous ventilation. Circulation: W/N/L, pulses unchanged. Nausea/Vomiting: No. Procedure completed. Patient transferred by wheelchair to CPRU. Vital chart was stopped. Access Site Site: Right Radial artery Sheath Size: 6 Fr Hemostasis Method: TR Band Hemostasis Success: Successful Procedure Medications Start: 9:24 AM Stop: 9:24 AM Medication: Versed Amount: 1 mg Route: I.V. Start: 9:24 AM Stop: 9:24 AM Medication: Fentanyl Amount: 50 mcg Route: I.V. Start: 9:26 AM Stop: 9:26 AM Medication: Nitrogylcerin Amount: 200 mcg Route: I.A. Start: 9:27 AM Stop: 9:27 AM Medication: Heparin Amount: 5000 units Route: I.V. I, the attending physician, have reviewed and verified all procedure medications. Yes, all medications given per verbal order History/Risk Factors Hypertension: Yes Dyslipidemia: No Peripheral Arterial Disease (PAD): No Myocardial Infarction (MT): No Obesity: No Renal Disease: No Tobacco Use: Never Prior Interventions PCI: No CABG: No Valve Surgery: No Report Signatures Finalized by Hung Washington MD on 03/06/2023 06:43 PM
[2023-02-27 08:05] LABS: Basophils # 0.1 10^3/uL (0.0-0.1); Basophils % 0.6 %; Eosinophils # 0.1 10^3/uL (0.0-0.8); Eosinophils % 1.1 %; Lymphocytes % 17.2 %; Mean Corpuscular HGB Conc 32.6 g/dL (30-55); Mean Corpuscular Hemoglobin 29.2 pg (27-33); Mean Corpuscular Volume 89.7 fl (82-101); Mean Platelet Volume 9.8 fL (7.4-10.4); Monocytes # 0.8 10^3/uL (0.2-0.9); Monocytes % 6.7 %; Neutrophils # 8.52 10^3/uL (1.8-7.7); Neutrophils % 73.5 %; Nucleated Red Blood Cells % 0 %; Platelet Count 245 10^3/cmm (157-399); Red Blood Count 5.24 10^6/uL (3.85-5.65); Red Cell Distribution Width 14.3 % (12.1-15.1); White Blood Count 11.61 10^3/uL (3.29-11.43)
[2023-02-27] MEDS: aspirin 325 mg Tablet PO (08:35)
[2023-02-27] MEDS: diphenhydrAMINE 50 mg Capsule PO (08:35)
[2023-02-27 08:37] LABS: Anion Gap 13.9 (5-19); Blood Urea Nitrogen 20 mg/dL (8-23); Carbon Dioxide 26 mmol/L (22-29); Chloride 100 mmol/L (98-107); Glomerular Filtration Rate 96.7 mL/min (90-130); Glucose 130 mg/dL (65-115); Osmolality Calculated 286 mOsm/kg (285-295); Potassium 3.9 mmol/L (3.5-5.1); Sodium 136 mmol/L (136-145)
--- NOTE | 2023-02-27 09:22 | P.HP_ITS ---
Same Day Surgery H&P Indication for Procedure/HPI DATE OF PROCEDURE: February 27, 2023 CHIEF COMPLAINT/INDICATIONFOR SURGICAL PROCEDURE: Chest pain/abnormal stress test PREOP DIAGNOSIS: Chest pain/abnormal stress test PLANNED PROCEDURE: Operation Date: 02/27/23 08:30 Proposed Procedures p [facility] 39841,R94.39(Left) - Hung Washington M.D Possible percuataneous coronary intervention 67-year-old man with past medical history of hypertension has been referred for evaluation of chest discomfort. A stress test was performed which showed findings likely possible ischemia in the left circumflex artery territory. Given patient's ongoing symptoms, decision made to perform coronary angiogram with possible percutaneous coronary intervention. Medications/Allergies* Home Medications Medication Instructions Recorded Confirmed Type allopurinol 300 mg tablet 300 mg PO DAILY 04/09/22 02/27/23 History celecoxib 200 mg capsule (Celebrex) 200 mg PO DAILY 04/09/22 02/27/23 History fluticasone propionate 50 2 spray intranasal DAILY 04/09/22 02/27/23 History mcg/actuation nasal spray,suspension (Flonase Allergy Relief) losartan 50 mg tablet 50 mg PO DAILY 04/09/22 02/27/23 History meclizine 25 mg tablet 25 mg PO DAILY PRN prn 04/09/22 02/26/23 History pantoprazole 40 mg tablet,delayed 40 mg PO BID 04/09/22 02/27/23 History release triamterene 37.5 1 cap PO DAILY 04/09/22 02/27/23 History mg-hydrochlorothiazide 25 mg capsule acetaminophen 650 mg 650 mg PO Q12H 07/04/22 02/26/23 History tablet,extended release (Tylenol Arthritis Pain) tramadol 50 mg tablet 50 mg PO DAILY 07/04/22 02/26/23 History Allergies/Adverse Reactions Allergy/AdvReac Type Severity Reaction Status Date / Time No Known Allergies Allergy Verified 01/01/23 13:46 Current Medications: Generic Name Dose Route Start Last Admin Trade Name Freq PRN Reason Stop Dose Admin Sodium Chloride 1,000 mls @ 50 mls/hr 02/27/23 07:30 02/27/23 08:35 Sodium Chloride 0.9% IV 02/28/23 03:29 Not Given .Q20H ONE Pertinent History/Comorbid Conditions* Medical History (Updated 01/01/23 @ 14:09 by Hung Washington M.D) Gout Hypertension Surgical History (Updated 11/15/22 @ 09:07 by Quan Robledo MD) History of cholecystectomy History of left hip replacement History of shoulder surgery Social History Smoking and tobacco status: never smoked Pertinent Exam Findings alert, oriented x 3, clear to auscultation bilaterally and regular rate & rhythm Conscious Sedation Assessment PATIENT ASSESSED PRIOR TO SEDATION, WITH NO CHANGE NOTED: Yes AIRWAY EVAL/ANESTHESIA PLAN: normal airway, ASA III, Local Anesthesia, Risks, benefits & alternatives of sedation and/or procedure discussed and Patient agrees to continue as planned ADDITIONAL INFORMATION: Moderate sedation Recommendations Surgery/Procedure today (Left heart cath with possible percutaneous coronary intervention) Coding Level of Care Code Acute Code for Chg Fwd Diagnoses
--- NOTE | 2023-02-27 10:20 | PC.NURSE ---
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 pt alert and oriented x3. pt complains of no pain. tr band on right wrist with distal pulse palpable. no bruising or hematoma noted. pt educated on restrictions of right wrist, pt stated understanding. pt will be educated throughout recovery as well. pt placed on monitor and will be monitored per protocol. plan is to recovery pt and dc home in 3 hrs.
== END 2023-02-27 12:50 | disposition home or self-care (01) ==
PROVIDERS: PCP Nurse Practitioner Family; Visit Provider Internal Medicine
DX: R07.89 Other chest pain (principal); R94.39 Abnormal result of other cardiovascular function study; I10 Essential (primary) hypertension
CPT/HCPCS: 36415; 80048; 85025; 93458; 96361; 96365; 96367; 99152; C1769; C1887; C1894; J1644; J2250; J3010; J3490; J7030; Q0163; Q9967

== ENCOUNTER → 2023-03-10 12:04 | Outpatient (BNVA) | payer MEDICARE, SELFPAY | PROVIDERS: PCP Nurse Practitioner Family; Visit Provider Internal Medicine | DX: R07.9 Chest pain, unspecified (principal); I10 Essential (primary) hypertension | CPT/HCPCS: 99214 ==

== ENCOUNTER → 2023-08-08 09:32 | Outpatient (BNVA) | payer MEDICARE, SELFPAY | PROVIDERS: PCP Nurse Practitioner Family; Visit Provider Otolaryngology | DX: H65.02 Acute serous otitis media, left ear (principal); H90.12 Conductive hearing loss, unilateral, left ear, with unrestricted hearing on the contralateral side; H93.12 Tinnitus, left ear | CPT/HCPCS: 99213 ==

== ENCOUNTER → 2023-09-29 08:47 | Outpatient (BNVA) | payer MEDICARE, SELFPAY | PROVIDERS: PCP Nurse Practitioner Family; Referring Provider Nurse Practitioner Family; Visit Provider Surgery | DX: R13.10 Dysphagia, unspecified (principal); R14.0 Abdominal distension (gaseous); Z86.010 Personal history of colon polyps | CPT/HCPCS: 99204 ==

== ENCOUNTER 2023-11-05 08:10 | Day surgery (SDC) | payer MEDICARE, SELFPAY ==
[2023-11-05 08:41] VITALS: BP 172/85; PULSE 89; RESP 18; TEMP 36.8; O2SAT 95; BMI 45.8
[2023-11-05] MEDS: sodium chloride 0.9% 1,000 ML 30 ML IV (08:49)
--- NOTE | 2023-11-05 08:54 | P.ANESASSM_ITS ---
Pre-Anesthetic Assessment Height/Weight: Height 1.75 m Weight 140.614 kg Temp Pulse Resp BP Pulse Ox O2 Del Method 98.2 F 89 18 172/85 95 Room Air 11/05/23 08:41 11/05/23 08:41 11/05/23 08:41 11/05/23 08:41 11/05/23 08:41 11/05/23 08:41 Preop Diagnosis: H/O colonic polyps Operation Date: 11/05/23 09:30 Proposed Procedures p EGD Dilation with balloon(Not Applicable) - DO michelle Tatum Colonoscopy(Not Applicable) - Valente Pereira DO Familial anesthetic complications: none Was Beta Joycelyn taken within 24 hours: N/A Last intake: Intake Last Liquid Date 11/04/23 Last Liquid Time 20:30 Last Solid Date 11/04/23 Last Solid Time 09:00 Social No alcohol and No tobacco Exam alert, No oriented x 3, No clear to auscultation bilaterally and No regular rate & rhythm Airway Submandibular: within normal limits Cervical ROM: within normal limits Mallampati: Class IV Dentition: full Pulmonary Sleep Apnea (CPAP COMPLIANT) CV/HEM Hypertension None reported Hepatic None reported GI Gastroesophageal Reflux Disease DYSPHASIA Metabolic Morbid Obesity Musc/skel Lower Back Pain and Osteoarthritis/DJD Neuropsych None reported Anesthetic Plan ASA status: 3 Anesthesia: MAC Medications/Allergies Home Medications Medication Instructions Recorded Confirmed Last Taken Type allopurinol 300 mg tablet 300 mg PO DAILY 04/09/22 11/03/23 11/03/23 History celecoxib 200 mg capsule (Celebrex) 200 mg PO DAILY 04/09/22 11/03/23 10/29/23 History fluticasone propionate 50 2 spray intranasal DAILY 04/09/22 11/03/23 11/04/23 History mcg/actuation nasal spray,suspension (Flonase Allergy Relief) losartan 50 mg tablet 50 mg PO DAILY 04/09/22 11/03/23 11/04/23 History meclizine 25 mg tablet 25 mg PO DAILY PRN prn 04/09/22 11/03/23 Unknown History pantoprazole 40 mg tablet,delayed 40 mg PO BID 04/09/22 11/03/23 11/04/23 History release triamterene 37.5 1 cap PO DAILY 04/09/22 11/03/23 11/04/23 History mg-hydrochlorothiazide 25 mg capsule tramadol 50 mg tablet 50 mg PO DAILY PRN Pain 09/29/23 11/03/23 11/03/23 History cetirizine 10 mg tablet 10 mg PO DAILY 11/05/23 11/05/23 11/04/23 History doxycycline monohydrate 50 mg 50 mg PO DAILY 11/05/23 11/05/23 11/04/23 History capsule Allergies Allergy/AdvReac Type Severity Reaction Status Date / Time No Known Allergies Allergy Verified 09/29/23 08:49 Current Medications Generic Name Dose Route Start Last Admin Trade Name Freq PRN Reason Stop Dose Admin Sodium Chloride 1,000 mls @ 30 mls/hr 11/05/23 08:30 11/05/23 08:49 Sodium Chloride 0.9% IV 11/06/23 08:29 30 mls/hr .Q24H MARLON Administration PFSH Anesthesia Medical History (Updated 09/29/23 @ 09:20 by Valente Pereira DO) History of colon polyps Hypertension (Unknown) Gout Surgical History (Updated 09/29/23 @ 09:20 by Valente Pereira DO) Hx of colonoscopy with polypectomy less than 5 yrs ago- [facility] History of esophagogastroduodenoscopy (EGD) History of cholecystectomy History of left hip replacement History of shoulder surgery Family History Unknown Cancer tumor removal -Grandma Mother Diabetes Father Diabetes Social History Smoking and tobacco/nicotine status: never used tobacco/nicotine Alcohol intake: never Data Anesthesia Cardiac Studies: Echocardiogram 01/15/23 Sestamibi Stress Test (Cardiology) 01/28
--- NOTE | 2023-11-05 09:41 | PM.HP ---
Providers/Chief Complaint Primary Care Provider: Yuni Winters APN Chief Complaint: R13.10, R14.0, Z86.010 History of Present Illness Abhishek Bunch Jr is a 68 year old male Review of Systems General: Reports: 10 or more systems reviewed and unremarkable except in HPI and below Medications/Allergies Home Medications Medication Instructions Recorded Confirmed Last Taken Type allopurinol 300 mg tablet 300 mg PO DAILY 04/09/22 11/03/23 11/03/23 History celecoxib 200 mg capsule (Celebrex) 200 mg PO DAILY 04/09/22 11/03/23 10/29/23 History fluticasone propionate 50 2 spray intranasal DAILY 04/09/22 11/03/23 11/04/23 History mcg/actuation nasal spray,suspension (Flonase Allergy Relief) losartan 50 mg tablet 50 mg PO DAILY 04/09/22 11/03/23 11/04/23 History meclizine 25 mg tablet 25 mg PO DAILY PRN prn 04/09/22 11/03/23 Unknown History pantoprazole 40 mg tablet,delayed 40 mg PO BID 04/09/22 11/03/23 11/04/23 History release triamterene 37.5 1 cap PO DAILY 04/09/22 11/03/23 11/04/23 History mg-hydrochlorothiazide 25 mg capsule tramadol 50 mg tablet 50 mg PO DAILY PRN Pain 09/29/23 11/03/23 11/03/23 History cetirizine 10 mg tablet 10 mg PO DAILY 11/05/23 11/05/23 11/04/23 History doxycycline monohydrate 50 mg 50 mg PO DAILY 11/05/23 11/05/23 11/04/23 History capsule Allergies Allergy/AdvReac Type Severity Reaction Status Date / Time No Known Allergies Allergy Verified 09/29/23 08:49 PFSH Acute PFSH: Medical History (Updated 09/29/23 @ 09:20 by Valente Pereira DO) History of colon polyps Hypertension (Unknown) Gout Surgical History (Updated 09/29/23 @ 09:20 by Valente Pereira DO) Hx of colonoscopy with polypectomy less than 5 yrs ago- [facility] History of esophagogastroduodenoscopy (EGD) History of cholecystectomy History of left hip replacement History of shoulder surgery Family History Unknown Cancer tumor removal -Grandma Mother Diabetes Father Diabetes Social History Smoking and tobacco/nicotine status: never used tobacco/nicotine Alcohol intake: never Vitals/I&O/Wt Last Vital Signs Temp 98.2 F 11/05/23 08:41 Pulse 89 11/05/23 08:41 Resp 18 11/05/23 08:41 BP 172/85 11/05/23 08:41 Pulse Ox 95 11/05/23 08:41 O2 Del Method Room Air 11/05/23 08:41 Weight last 48 hrs Weight 310 lb A&P Assessment and plan (1) Dysphagia: (2) History of colon polyps: (3) Bloating: Plan EGD with possible balloon dilation Colonoscopy Attestations Medical Necessity Statement*: Home Coding Level of Care Code Acute Code for Chg Fwd Diagnoses Dysphagia R13.10 History of colon polyps Z86.010 Bloating R14.0
[2023-11-05 10:16] VITALS: BP 101/77; PULSE 92; RESP 14; TEMP 36.6; O2SAT 98
[2023-11-05 10:33] VITALS: BP 178/82; PULSE 88; RESP 16; O2SAT 97
--- NOTE | 2023-11-05 11:15 | ANE.PACU2 ---
Inpatient post-anesthesia follow up: Airway intact: Yes Vital signs: Temperature 97.9 F Pulse Rate 88 Respiratory Rate 16 Blood Pressure 178/82 Pulse Oximetry 97 Oxygen Delivery Me thod Room Air Oxygen Flow Rate Fraction of Inspir ed Oxygen Hydration adequate: Yes Nausea and vomiting: No Pain level: 1 Mental status: Baseline
== END 2023-11-05 11:16 | disposition home or self-care (01) ==
PROVIDERS: PCP Nurse Practitioner Family; Visit Provider Surgery
PROC: 0DJD8ZZ Inspection of Lower Intestinal Tract, Via Natural or Artificial Opening Endoscopic (ICD-10-PCS; CPT 45378; 2023-11-05 09:30)
DX: K57.30 Diverticulosis of large intestine without perforation or abscess without bleeding (principal); K29.70 Gastritis, unspecified, without bleeding; K31.819 Angiodysplasia of stomach and duodenum without bleeding; K22.2 Esophageal obstruction; K21.9 Gastro-esophageal reflux disease without esophagitis
CPT/HCPCS: 43239; 43249; 88305; G0121; J2704; J3490; J7030

== ENCOUNTER → 2023-11-06 09:54 | Outpatient (BNVA) | payer MEDICARE, SELFPAY | PROVIDERS: PCP Nurse Practitioner Family; Visit Provider Podiatrist Foot & Ankle Surgery | DX: L85.1 Acquired keratosis [keratoderma] palmaris et plantaris (principal) | CPT/HCPCS: 17110; 99203 ==

== ENCOUNTER → 2023-11-17 08:50 | Outpatient (BNVA) | payer MEDICARE, SELFPAY | PROVIDERS: PCP Nurse Practitioner Family; Visit Provider Surgery | DX: K31.819 Angiodysplasia of stomach and duodenum without bleeding (principal); R14.0 Abdominal distension (gaseous); K21.9 Gastro-esophageal reflux disease without esophagitis | CPT/HCPCS: 99214 ==

== ENCOUNTER → 2024-04-05 08:39 | Outpatient (BNVA) | payer MEDICARE, SELFPAY | PROVIDERS: PCP Nurse Practitioner Family; Visit Provider Podiatrist Foot & Ankle Surgery | DX: M79.671 Pain in right foot (principal) | CPT/HCPCS: 73630; 99213 ==

== ENCOUNTER → 2025-03-07 07:43 | Outpatient (BNVA) | payer MEDICARE, SELFPAY | PROVIDERS: PCP Nurse Practitioner Family; Visit Provider Podiatrist Foot & Ankle Surgery | DX: L85.1 Acquired keratosis [keratoderma] palmaris et plantaris (principal) | CPT/HCPCS: 17110 ==

== ENCOUNTER → 2025-04-04 10:35 | Outpatient (BNVA) | payer MEDICARE, SELFPAY | PROVIDERS: PCP Nurse Practitioner Family; Referring Provider Physician Assistant; Visit Provider Anesthesiology Pain Medicine | DX: M47.816 Spondylosis without myelopathy or radiculopathy, lumbar region (principal) | CPT/HCPCS: 99214 ==

== ENCOUNTER → 2025-06-06 10:37 | Outpatient (BNVA) | payer MEDICARE, SELFPAY | PROVIDERS: PCP Nurse Practitioner Family; Visit Provider Anesthesiology Pain Medicine | DX: M47.816 Spondylosis without myelopathy or radiculopathy, lumbar region (principal) | CPT/HCPCS: 99214 ==

== ENCOUNTER 2025-06-21 07:44 | Outpatient (CLI) | payer MEDICARE, SELFPAY ==
--- NOTE | 2025-06-21 08:00 | MR_ITS ---
WS: [id number] MRI LUMBAR SPINE NONCONTRAST TECHNIQUE: Sagittal T1, T2 and STIR imaging. Axial T1 and T2 imaging. CLINICAL INFORMATION: M54.16 - Radiculopathy, lumbar region COMPARISON: None. FINDINGS: Mild lumbar curve. No acute compression. 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 Small disc protrusion in the lower thoracic spine at T11-T12. L1-L2: Narrowing of the RIGHT subarticular recess. Moderate facet arthropathy. Mild bilateral foraminal narrowing. L2-L3: Mild annular bulging. Moderate facet arthropathy. Mild LEFT foraminal narrowing with a small LEFT foraminal protrusion. L3-L4: Mild annular bulging. Mild central canal stenosis. Impingement of the traversing L4 nerve roots bilaterally. Moderate facet arthropathy. Mild LEFT greater than RIGHT foraminal narrowing. L4-L5: Mild disc bulging with moderate central canal stenosis. Impingement of traversing L5 nerve roots bilaterally. Small foraminal protrusions with mild to moderate LEFT and mild RIGHT foraminal narrowing. L5-S1: Mild disc bulge with endplate ridging. Shallow central protrusion with slight contact of the traversing RIGHT greater than LEFT S1 nerve roots. Mild to moderate RIGHT and mild LEFT foraminal narrowing. Mild facet arthropathy. Visualized pelvic bony structures: Normal. Paravertebral soft tissues: Normal. MR/MR lumbar spine wo con* [id number] IMPRESSION: 1. Mild central canal stenosis L3-4 and moderate central canal stenosis L4-5 w ith impingement subarticular recess bilaterally. 2. Mild to moderate LEFT L4-5 and RIGHT L5-S1 foraminal narrowing. 3. Small central protrusion L5-S1 with slight impingement on the traversing RI GHT S1 nerve root.
== END 2025-06-21 07:45 | disposition home or self-care (01) ==
LOC: RAD 07:46
PROVIDERS: Absent Provider Electrodiagnostic Medicine; PCP Nurse Practitioner Family; Visit Provider Anesthesiology Pain Medicine
DX: M51.26 Other intervertebral disc displacement, lumbar region (principal); M48.061 Spinal stenosis, lumbar region without neurogenic claudication; M51.17 Intervertebral disc disorders with radiculopathy, lumbosacral region; M51.24 Other intervertebral disc displacement, thoracic region; M43.8X6 Other specified deforming dorsopathies, lumbar region
CPT/HCPCS: 72148